=== PATIENT | female | born 1950 | race Caucasian/White ===

== ENCOUNTER 2017-12-23 10:03 | Inpatient (IN) | payer MEDICARE ==
[2017-12-23] MEDS ORDERED: Iodixanol 320 MG/ML 100 ML BOTTLE IV ONE (10:14)
[2017-12-23 10:25] LABS: BASO % 0.5 % (0.0-2.0); EOS % 0.2 % (0.0-4.0); HEMOGLOBIN 13.3 g/dL (11.0-16.0); LYMPH # 1.2 K/uL (1.0-4.3); LYMPH % 17.4 % (20.0-40.0); MEAN CELL VOLUME 88.3 fL (81.0-99.0); MEAN CORPUSCULAR HEMOGLOBIN 29.5 pg (27.0-31.0); MEAN CORPUSCULAR HGB CONC 33.4 g/dL (33.0-37.0); MEAN PLATELET VOLUME 9.3 fL (7.2-11.7); MONO # 0.2 K/uL (0.0-0.8); MONO % 2.2 % (0.0-10.0); NEUT # 5.7 K/uL (1.8-7.0); NEUT % 79.7 % (50.0-75.0); RBC 4.52 Mil/uL (3.80-5.20); WHITE BLOOD COUNT 7.1 K/uL (4.8-10.8)
[2017-12-23 10:37] LABS: INR 0.9; PROTHROMBIN TIME 10.1 SECONDS (9.7-12.2)
--- NOTE | 2017-12-23 10:37 | CT ---
PROCEDURE: CT HEAD WITHOUT CONTRAST. HISTORY: Code Stroke COMPARISON: None available. TECHNIQUE: Axial computed tomography images were obtained through the head/brain without intravenous contrast. Radiation dose: Total exam DLP = eight hundred seventy-six mGy-cm. This CT exam was performed using one or more of the following dose reduction techniques: Automated exposure control, adjustment of the mA and/or kV according to patient size, and/or use of iterative reconstruction technique. FINDINGS: HEMORRHAGE: No intracranial hemorrhage. BRAIN: No mass effect or edema. Scattered focal lucencies in the subcortical and periventricular white matter suggestive for chronic microvascular ischemic change. More confluent low attenuation seen within the posterior left parieto-occipital regions suggestive for infarct. Prominent bilateral basal ganglia calcifications. Punctate left basal ganglia lacunar infarct. . VENTRICLES: Unremarkable. No hydrocephalus. CALVARIUM: Unremarkable. PARANASAL SINUSES: Unremarkable as visualized. No significant inflammatory changes. MASTOID AIR CELLS: Unremarkable as visualized. No inflammatory changes. OTHER FINDINGS: Intracranial arterial calcifications. IMPRESSION: Confluent low attenuation in the left parieto-occipital lobes suggestive for infarction. Correlation with MRI may be helpful if clinically indicated. Chronic microvascular ischemic changes. Left basal ganglia lacunar infarct. If focal neurologic deficit persists, consider further evaluation with MRI. These findings were discussed with Dr. Membreno at 10:32 a.m. on 12/23/2017.
[2017-12-23 11:01] LABS: ALBUMIN 3.8 g/dL (3.5-5.0); CALCIUM 9.2 mg/dl (8.6-10.4); GFR AFRICAN-AMERICAN > 60; GFR NON-AFRICAN AMERICAN > 60; HDL CHOLESTEROL 38 mg/dL (30-70)
[2017-12-23 11:02] LABS: ALT/SGPT 26 U/L (9-52); AST/SGOT 30 U/L (14-36); BLOOD UREA NITROGEN 41 mg/dL (7-17)
--- NOTE | 2017-12-23 11:14 | CT ---
PROCEDURE: CT Angiography of the Brain. HISTORY: code stroke COMPARISON: None available. TECHNIQUE: CT angiography of the intracranial arteries was performed. Coronal and sagittal maximum intensity projection reformated images were generated. This CT exam was performed using one or more of the following dose reduction techniques: Automated exposure control, adjustment of the mA and/or kV according to patient size, and/or use of iterative reconstruction technique. FINDINGS: INTERNAL CEREBRAL ARTERIES: The skull base, petrous, and supraclinoid segments are bilaterally widely patent. [id number] bilateral cavernous ICA atherosclerotic changes are identified without significant stenosis developing grossly. ANTERIOR CEREBRAL ARTERIES: Unremarkable. A1 and A2 segments are widely patent. Smaller distal branches unremarkable, as visualized. MIDDLE CEREBRAL ARTERIES: Unremarkable. M1 and M2 segments are widely patent. Perisylvian branches grossly symmetric. POSTERIOR CIRCULATION: Basilar Artery: Unremarkable. Distal Vertebral Arteries: Unremarkable. Posterior Cerebral Arteries: Unremarkable. Posterior Inferior Cerebellar Arteries: Unremarkable. NECK CTA: Common Carotid arteries: The bilateral common carotid arteries are patent with atherosclerotic change identified greater the right than left carotid bulb regions. No significant stenosis identified nevertheless. No evidence to suggest common carotid artery dissection. Internal Carotid arteries: A moderate to severe left ICA origin stenosis appreciated due to atherosclerotic plaque extending into the proximal left ICA resulting in a stenosis of on the order of approximately 65-75 percent. No significant stenosis is appreciated throughout the left cervical internal carotid artery segments and there is no evidence of dissection either. External Carotid arteries: Appear unremarkable bilaterally. Vertebral arteries: The bilateral vertebral arteries appear normal in caliber from their origins to their junction with the basilar artery. No significant stenosis or definite pattern of dissection. ANEURYSM/ VASCULAR MALFORMATIONS: None. OTHER FINDINGS: None. IMPRESSION: Bilateral cavernous internal carotid artery atherosclerosis without significant stenosis. CT of the brain otherwise unremarkable grossly. Moderate to severe right internal carotid artery origin stenosis. No significant stenosis left ICA. Bilateral carotid bulbar atherosclerotic plaque.
[2017-12-23 11:43] LABS: LDL CHOLESTEROL 102 mg/dL (0-129)
[2017-12-23] MEDS ORDERED: NIFEdipine 90 mg ER Tab PO STA (11:52)
--- NOTE | 2017-12-23 12:43 | RAD ---
Chest x-ray single frontal view History: Code stroke. Comparison: 12/23/2017 Findings: Moderate venous congestion. Small nodular density at the medial right lower lung zone. Linear atelectasis in the right midlung zone. Mild cardiomegaly. Degenerative changes the spine and shoulders. Impression: Moderate venous congestion. Small nodular density at the medial right lower lung zone. Linear atelectasis in the right midlung zone. Mild cardiomegaly.
--- NOTE | 2017-12-23 13:01 | C.PDOC ---
History Of Present Illness 67 year old female, whose past medical history includes hyperthyroidism and TIA , who presents to the ED via ALS for right facial droop since 1 hour prior to arrival. Patient states she is unsure if the symptoms began when she woke up. Daughter reports patient is not slurring speech but face presentation is different. Patient denies shortness of breath, headache, fever, chills cough, nausea, vomiting, diarrhea, or other complaints. Chief Complaint (Nursing): Weakness/Neurological Deficit History Per: Patient History/Exam Limitations: no limitations Onset/Duration Of Symptoms: Hrs Current Symptoms Are (Timing): Still Present Fall Associated With With Symptoms: No Recent travel outside of the [place]: No Additional History Per: Family Past Medical History Reviewed: Historical Data, Nursing Documentation, Vital Signs Vital Signs: Last Vital Signs Temp 97.5 F L 12/23/17 17:36 Pulse 80 12/23/17 17:36 Resp 16 12/23/17 17:36 BP 178/78 H 12/23/17 17:36 Pulse Ox 98 12/23/17 17:47 - Medical History PMH: Hypothyroidism, TIA Family History: States: No Known Family Hx - Social History Hx Alcohol Use: No Hx Substance Use: No Review Of Systems Except As Marked, All Systems Reviewed And Found Negative. Cardiovascular: Negative for: Chest Pain Respiratory: Negative for: Shortness of Breath Neurological: Positive for: Other (right facial droop). Negative for: Change in Speech Physical Exam - Physical Exam Appears: Well, Non-toxic, No Acute Distress Skin: Normal Color, Warm, Dry Head: Atraumatic, Normacephalic Eye(s): bilateral: Normal Inspection, PERRL, EOMI Oral Mucosa: Moist Tongue: Normal Appearing Cardiovascular: Rhythm Regular, No Murmur Respiratory: Normal Breath Sounds, No Rales, No Rhonchi, No Wheezing Gastrointestinal/Abdominal: Normal Exam, Bowel Sounds (Normal ), Soft, No Tenderness, No Distention, No Guarding, No Rebound Extremity: Normal ROM Neurological/Psych: Oriented x3, Normal Speech, Normal Cognition, Normal Cranial Nerves, Normal Motor, Normal Sensation, Other (right facial droop. no slurred speech ) ED Course And Treatment - Laboratory Results Result Diagrams: 12/23/17 10:15 12/23/17 10:15 ECG: Interpreted By Me, Viewed By Me ECG Rhythm: Sinus Rhythm (normal) Rate From EC O2 Sat by Pulse Oximetry: 98 (room air) Pulse Ox Interpretation: Normal NIHSS Stroke Scale 2 - Date/Time Evaluation Performed Date Performed: 12/23/17 Time Performed: 10:05 - How Severe is the Stroke Level of Consciousness: 0=Alert LOC to Questions: 0=Both comments correct LOC to commands: 0=Obeys both correctly Best Gaze: 0=Normal Visual: 0=No visual loss Facial: 1=Minor asymmetry Motor Arm - Left: 0=No drift Motor Arm - Right: 0=No drift Motor Leg - Left: 0=No drift Motor Leg - Right: 0=No drift Limb Ataxia: 0=Absent Sensory: 0=Normal Best Language: 0=No aphasia Dysarthia: 0=Normal articulation Extinction & Inattention (Neglect): 0=Normal, no object Score: 1 Severity Of Stroke: 1-4 = Minor Stroke rTPA Inclusion/Exclusion - Refusal of Treatment Patient Refused Treatment: No - Inclusion Criteria for Altepase Patient is 18 years or Older: Yes The Clinical Diagnosis of Ischemic Stroke That is Causing a Potentially Disabling Neurological Deficit: No Time of Onset is Well Established to be Less Than 270 Minute Before Treatment Would Begin: Yes Risk/Benefit Discussed With Patient/Family Member Present: No Medical Decision Making Medical Decision Making: Impression: 67 y/o female with right facial droop Plan: -- EKG -- CT Head -- CT neck -- CXR -- Labs -- Urinalysis -- Reassess and disposition Progress Notes: Case disscused with Dr. Schmidt, neurologist business administration program chair who saw patient. Dr. Schmidt advises due to elevated HTN, he recommends admission for work up. patient also admits to not taking any medication for HTN and will be administered medication in ED. Disposition - Disposition Disposition Time: 11:30 Condition: GUARDED - Clinical Impression Clinical Impression: TIA (transient ischemic attack), Facial droop - Scribe Statement The provider has reviewed the documentation as recorded by the Scribe Scribe Attestation: Evie Hadley MD Scribe Attestation: All medical record entries made by the Scribe were at my direction and personally dictated by me. I have reviewed the chart and agree that the record accurately reflects my personal performance of the history, physical exam, medical decision making, and the department course for this patient. I have also personally directed, reviewed, and agree with the discharge instructions and disposition.
--- NOTE | 2017-12-23 14:42 | CP.PCM.CON ---
History of Present Illness - History of Present Illness History of Present Illness: Called for a code stroke on this patient earlier today, who presented with a discrete spell of dysarthria with a 10 minute duration, not accompanied by aphasia, or focal weakness at about am this morning. Miss Morris has severe DM, HTN, obesity, and was speaking to her daughter earlier today on the phone, when daughter noted that she was slurring her words. Last night, the patient complained of malaise, fever, and chills, and this morning, she continued to feel ill so called her daughter. Ambulance was called and she was brought [facility] ER, with dysarthria already resolved. On my exam, approximately 45 minutes after patient arrived in ER, she had an NIH stroke scale of 0 and was not a TPA candidate. There was no aphasia, weakness or facial droop. The daughter, who was at bedside, confirmed this. Apparentlly, there is a history of a ministroke in the past, but the deficits are not clear. She does complain of dizziness worse on positional manuevers. ROS: denies headache, nausea, vomiting, weakness, blurriness of vision. pmh/psh: as above. fh/sh: family history of Dm, htn. all: nkda. On exam: aaox3. pupils 3mm-2mm with light. EOMI, CN 2-12 normal. motor: 5/5 ul and ll bl. SEnsory: intact ft, pin but decreased in asymmetric fashion in legs bl. gait; normal, no rhomberg noted. no dysmetria, no drift. +1 dtr ul and ll bl. toes downgoing. no clonus. Past Patient History - Past Social History Smoking Status: Never Smoked - CARDIAC Hx Cardiac Disorders: Yes - NEUROLOGICAL Hx Transient Ischemic Attacks (TIA): Yes - ENDOCRINE/METABOLIC Hx Hypothyroidism: Yes - PSYCHIATRIC Hx Substance Use: No Meds Allergies/Adverse Reactions: Allergies Allergy/AdvReac Type Severity Reaction Status Date / Time No Known Allergies Allergy Unverified 06/20/13 10:52 Results - Vital Signs Recent Vital Signs: Last Vital Signs Temp 97.7 F 12/23/17 13:12 Pulse 64 12/23/17 14:09 Resp 14 12/23/17 14:09 BP 163/57 H 12/23/17 14:09 Pulse Ox 100 12/23/17 14:09 - Labs Result Diagrams: 12/23/17 10:15 12/23/17 10:15 Labs: Laboratory Results - last 24 hr 12/23/17 12/23/17 12/23/17 10:12 10:15 10:15 WBC 7.1 RBC 4.52 Hgb 13.3 Hct 39.9 MCV 88.3 MCH 29.5 MCHC 33.4 RDW 14.0 Plt Count 177 MPV 9.3 Neut % (Auto) 79.7 H Lymph % (Auto) 17.4 L [place] % (Auto) 2.2 Eos % (Auto) 0.2 Baso % (Auto) 0.5 Neut # (Auto) 5.7 Lymph # (Auto) 1.2 [place] # (Auto) 0.2 Eos # (Auto) 0.0 Baso # (Auto) 0.0 PT 10.1 INR 0.9 APTT 33 Sodium Potassium Chloride Carbon Dioxide Anion Gap BUN Creatinine Est GFR ( Amer) Est GFR (Non-Af Amer) POC Glucose (mg/dL) 118 H Random Glucose Hemoglobin A1c Calcium Total Bilirubin AST ALT Alkaline Phosphatase Troponin I Total Protein Albumin Globulin Albumin/Globulin Ratio Triglycerides Cholesterol LDL Cholesterol Direct HDL Cholesterol Blood Type Antibody Screen 12/23/17 12/23/17 12/23/17 10:15 10:15 10:15 WBC RBC Hgb Hct MCV MCH MCHC RDW Plt Count MPV Neut % (Auto) Lymph % (Auto) [place] % (Auto) Eos % (Auto) Baso % (Auto) Neut # (Auto) Lymph # (Auto) [place] # (Auto) Eos # (Auto) Baso # (Auto) PT INR APTT Sodium 141 Potassium 4.5 Chloride 105 Carbon Dioxide 25 Anion Gap 16 BUN 41 H Creatinine 0.8 Est GFR ( Amer) > 60 Est GFR (Non-Af Amer) > 60 POC Glucose (mg/dL) Random Glucose 143 H Hemoglobin A1c 6.8 H Calcium 9.2 Total Bilirubin 0.6 AST 30 ALT 26 Alkaline Phosphatase 86 Troponin I < 0.0120 Total Protein 7.6 Albumin 3.8 Globulin 3.8 Albumin/Globulin Ratio 1.0 Triglycerides 86 Cholesterol 158 LDL Cholesterol Direct 102 HDL Cholesterol 38 Blood Type A POSITIVE Antibody Screen Negative - Imaging and Cardiology CT scan - head Additional comment: CT: normal.. CTA: significant LT ica stenosis of 65-75% Assessment & Plan - Assessment and Plan (Free Text) Assessment: 67 yr old woman with most likely TIA, and significant lt. ica stenosis. We will start stroke workup. Plan: 1. lipid profile. 2. MRI Brain without tin 3. aspirin 325 mg po daily. 4. Keep bp up at 180/90 range. 5. ECHO. 6. Will ask neurointerventional about her ICA stenosis ?intervention. 7. Admit to telemetry.
--- NOTE | 2017-12-23 15:21 | CP.PCM.HP ---
History of Present Illness - History of Present Illness History of Present Illness: PGY1 H+P for Dr. Kassie Hernandez Stroke Patient is a 67 year old female with a past medical history of DM2, HTN, obesity and previous TIA. Patient is accompanied by her daughter who translates for the patient. Last night the patient as experiences fatigue and chills. This morning she had an episode when she became extremely diaphoretic, dizzy and blurry vision. The patient decided to call the her daughter. The daughter noticed that the patient was slurring her words and decided to call for an ambulance. A code stroke was called. Patient was evaluated by neurology in the ED and was found to have an NIH stroke scale of 0 (per neuro note). This is not the first time the patient has experienced this symptoms. The only reason she decided to call her daughter today was because this episode of diaphoresis, dizziness and blurry vision The patient denies any headaches, nausea, vomiting, chest pain, abdominal pain, palpitations, loss of consciousness, muscle weakness , facial droop, aphasia, numbness or tingling. 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 Family Hx: multiple family members with diabetes/htn Social: Never Smoked, denies alcohol/illicit drug use - patient lives alone in apartment in [place] Allergies: NKDA Present on Admission - Present on Admission Any Indicators Present on Admission: No Review of Systems - Review of Systems All systems: reviewed and no additional remarkable complaints except (as per HPI ) Past Patient History - Past Social History Smoking Status: Never Smoked - CARDIAC Hx Cardiac Disorders: Yes - NEUROLOGICAL Hx Transient Ischemic Attacks (TIA): Yes - ENDOCRINE/METABOLIC Hx Hypothyroidism: Yes - PSYCHIATRIC Hx Substance Use: No Meds Allergies/Adverse Reactions: Allergies Allergy/AdvReac Type Severity Reaction Status Date / Time No Known Allergies Allergy Unverified 06/20/13 10:52 Physical Exam - Constitutional Appears: No Acute Distress, Other (obese) - Head Exam Head Exam: ATRAUMATIC, NORMOCEPHALIC - Eye Exam Eye Exam: EOMI, Normal appearance Pupil Exam: NORMAL ACCOMODATION - ENT Exam ENT Exam: Mucous Membranes Moist - Respiratory Exam Respiratory Exam: Clear to Auscultation Bilateral, NORMAL BREATHING PATTERN. absent: Accessory Muscle Use, Rales, Rhonchi, Wheezes, Respiratory Distress - Cardiovascular Exam Cardiovascular Exam: REGULAR RHYTHM, +S1, +S2 - GI/Abdominal Exam GI & Abdominal Exam: Normal Bowel Sounds, Soft. absent: Distended, Firm, Guarding, Rigid, Tenderness - Extremities Exam Extremities exam: Positive for: calf tenderness (R side), normal capillary refill, pedal edema (2+ pitting edema on right, 1+ pitting edema on left), pedal pulses present Additional comments: amputation of 5th digit on left foot. - Neurological Exam Neurological exam: Alert, CN II-XII Intact, Oriented x3 - Expanded Neurological Exam Expanded Patient oriented to: person, place, time Cranial nerves: EOM's Intact: Normal, Facial Sensation: Normal, Nystagmus: Normal, Tongue Deviation: Normal Ataxia: No Upper motor neuron: Babinski Sign: Normal, Sourav Neglect: Normal, Pronator Drift : Normal, Sensory Extinction: Normal Neuro motor strength exam: Left Upper Extremity: 5, Right Upper Extremity: 5, Left Lower Extremity: 5, Right Lower Extremity: 5 Coma Scale Eye Opening: SPONTANEOUS Coma Scale Motor Response: OBEYS COMMANDS Coma Scale Verbal: Oriented Coma Scale Total: 15 - Psychiatric Exam Psychiatric exam: Normal Affect, Normal Mood - Skin Skin Exam: Dry, Warm Results - Vital Signs Recent Vital Signs: Last Vital Signs Temp 97.7 F 12/23/17 13:12 Pulse 64 12/23/17 14:09 Resp 14 12/23/17 14:09 BP 163/57 H 12/23/17 14:09 Pulse Ox 100 12/23/17 14:09 - Labs Result Diagrams: 12/23/17 10:15 12/23/17 10:15 Labs: Laboratory Results - last 24 hr 12/23/17 12/23/17 12/23/17 10:12 10:15 10:15 WBC 7.1 RBC 4.52 Hgb 13.3 Hct 39.9 MCV 88.3 MCH 29.5 MCHC 33.4 RDW 14.0 Plt Count 177 MPV 9.3 Neut % (Auto) 79.7 H Lymph % (Auto) 17.4 L [place] % (Auto) 2.2 Eos % (Auto) 0.2 Baso % (Auto) 0.5 Neut # (Auto) 5.7 Lymph # (Auto) 1.2 [place] # (Auto) 0.2 Eos # (Auto) 0.0 Baso # (Auto) 0.0 PT 10.1 INR 0.9 APTT 33 Sodium Potassium Chloride Carbon Dioxide Anion Gap BUN Creatinine Est GFR ( Amer) Est GFR (Non-Af Amer) POC Glucose (mg/dL) 118 H Random Glucose Hemoglobin A1c Calcium Total Bilirubin AST ALT Alkaline Phosphatase Troponin I Total Protein Albumin Globulin Albumin/Globulin Ratio Triglycerides Cholesterol LDL Cholesterol Direct HDL Cholesterol Blood Type Antibody Screen 12/23/17 12/23/17 12/23/17 10:15 10:15 10:15 WBC RBC Hgb Hct MCV MCH MCHC RDW Plt Count MPV Neut % (Auto) Lymph % (Auto) [place] % (Auto) Eos % (Auto) Baso % (Auto) Neut # (Auto) Lymph # (Auto) [place] # (Auto) Eos # (Auto) Baso # (Auto) PT INR APTT Sodium 141 Potassium 4.5 Chloride 105 Carbon Dioxide 25 Anion Gap 16 BUN 41 H Creatinine 0.8 Est GFR ( Amer) > 60 Est GFR (Non-Af Amer) > 60 POC Glucose (mg/dL) Random Glucose 143 H Hemoglobin A1c 6.8 H Calcium 9.2 Total Bilirubin 0.6 AST 30 ALT 26 Alkaline Phosphatase 86 Troponin I < 0.0120 Total Protein 7.6 Albumin 3.8 Globulin 3.8 Albumin/Globulin Ratio 1.0 Triglycerides 86 Cholesterol 158 LDL Cholesterol Direct 102 HDL Cholesterol 38 Blood Type A POSITIVE Antibody Screen Negative Assessment & Plan - Assessment and Plan (Free Text) Plan: CODE Stroke Neurology consulted, Dr. Vivas - Dr. Schmidt covering Neurovascular consulted, Dr. Leyva Head CT w/o contrast - Confluent low attenuation in the left parieto-occipital lobes suggestive for infarction. Correlation with MRI may be helpful if clinically indicated. Chronic microvascular ischemic changes. Left basal ganglia lacunar infarct. If focal neurologic deficit persists, consider further evaluation with MRI. Head/Neck CTA - Bilateral cavernous internal carotid artery atherosclerosis without significant stenosis. CT of the brain otherwise unremarkable grossly. Moderate to severe right internal carotid artery origin stenosis. No significant stenosis left ICA. Bilateral carotid bulbar atherosclerotic plaque. CXR - Moderate venous congestion. Small nodular density at the medial right lower lung zone. Linear atelectasis in the right midlung zone. Mild cardiomegaly. Brain MRI w/o: f/u ECHO:f/u Carotid Doppler: f/u LE venous duplex: f/u EKG: NSR, left axis deviations, ST elevations Lipid Panel: HDL 38, LDL 102, Trigly 86 Trop: neg x1, f/u repeat TSH/free T4: f/u Neuro checks q4h Per Neuro Note, * Aspirin 325mg PO daily * Keep BP up at 180/90 range Patient's symptoms have resolved. Patient is currently showing no signs of residual neuro deficits. Continue to monitor. Diabetes ISS - high dose Accuchecks Hold home medications at this time * Metformin - unknown dose * Novolog 10u BID Hypertension Keep BP up at 180/90 range Hold home BP medications at this time * Furosemide 40mg PO daily * Valsartan - unknown dose Anemia Continue to monitor Prophylactic Care Pepcid 20mg PO daily Heparin 5000u q8h No SCDS - 2/2 leg edema Crestor 10mg PO HS Heart healthy, 2g Na, Carbo consistent - low Patient's home medications dosages are not known. Will call pharmacy to verify medications. * Furosemide 40mg PO daily * Valsartan - unknown dose * ASA 81mg PO daily * Metformin - unknown dose * Lipator - unknown dose * Insulin - Novolog 10u BID * Procardia XL - unknown dose * Triceva??? Case discussed with Dr. Kassie Arzate Alex PGY1
[2017-12-23] MEDS ORDERED: (Novolin R) Insulin Human Regular 100 units/ml vial ONE (21:58)
[2017-12-23] MEDS: (Novolin R) Insulin Human Regular 100 units/ml vial SC SCH (22:00)
[2017-12-24 05:08] LABS: SQUAMOUS EPITHIAL 4 /hpf (0-5); URINE BACTERIA OCC (<OCC); URINE BILIRUBIN NEGATIVE (NEGATIVE); URINE BLOOD NEGATIVE (NEGATIVE); URINE CLARITY Hazy (Clear); URINE COLOR Yellow (YELLOW); URINE GLUCOSE (UA) NORMAL (Normal); URINE LEUKOCYTE ESTERASE NEG Leu/uL (Negative); URINE NITRATE NEGATIVE (NEGATIVE); URINE PROTEIN 2+ mg/dL (NEGATIVE); URINE UROBILINOGEN NORMAL mg/dL (0.2-1.0)
[2017-12-24 05:44] VITALS: RESP 20
--- NOTE | 2017-12-24 06:45 | CP.PCM.PN ---
Subjective - Date & Time of Evaluation Date of Evaluation: 12/24/17 Time of Evaluation: 06:43 - Subjective Subjective: Ms. Morris was seen and examined at the bedside. 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 She denies any headache, dizziness, blurred vision, diplopia, nausea, or vomiting. She is able to follow simple commands. CTA showed bilateral ICA atherosclerosis without significant stenosis. There was no untoward events overnight. Objective - Vital Signs/Intake and Output Vital Signs (last 24 hours): Temp Pulse Resp BP Pulse Ox 98.8 F 74 20 175/73 H 96 12/24/17 04:28 12/24/17 05:43 12/24/17 05:43 12/24/17 05:43 12/24/17 05:43 Intake and Output: 12/23/17 12/24/17 18:59 06:59 Intake Total 300 Output Total 550 Balance -250 - Medications Medications: Current Medications Aspirin (Ecotrin) 81 mg PO DAILY [facility] Clopidogrel Bisulfate (Plavix) 75 mg PO DAILY [facility] Famotidine (Pepcid) 20 mg PO DAILY [facility] Heparin Sodium (Porcine) (Heparin) 5,000 units SC Q8 [facility] Last Admin: 12/24/17 05:07 Dose: 5,000 units Insulin Human Regular (Novolin R) 0 unit SC ACHS [facility] PRN Reason: Protocol Last Admin: 12/23/17 22:00 Dose: 2 unit Rosuvastatin Calcium (Crestor) 10 mg PO HS [facility] Last Admin: 12/23/17 21:59 Dose: 10 mg - Labs Labs: 12/23/17 10:15 12/23/17 10:15 PT 10.1 SECONDS (9.7-12.2) 12/23/17 10:15 INR 0.9 12/23/17 10:15 APTT 33 SECONDS (21-34) 12/23/17 10:15 - Constitutional Appears: No Acute Distress - Head Exam Head Exam: NORMAL INSPECTION - Neurological Exam Neurological Exam: Alert, Awake, Oriented x3 Neuro motor strength exam: Left Upper Extremity: 5, Right Upper Extremity: 5, Left Lower Extremity: 5, Right Lower Extremity: 5 Additional comments: She is able to answer questions and follow simple commands. Sensation remains intact. Assessment and Plan (1) TIA (transient ischemic attack) Assessment & Plan: Case discussed with Dr. Vivas, continue all current medical regimen. Recommend PT, OT, and speech therapies. Pending echocardiogram, MRI of the brain without contrast, MRA of the head and neck without contrast. Recommend aspirin 81 mg PO daily and Plavix 75 mg PO daily. Status: Acute
[2017-12-24 08:13] LABS: BASO % 0.6 % (0.0-2.0); EOS # 0.1 K/uL (0.0-0.7); EOS % 2.3 % (0.0-4.0); HEMOGLOBIN 11.4 g/dL (11.0-16.0); LYMPH # 1.8 K/uL (1.0-4.3); LYMPH % 30.2 % (20.0-40.0); MEAN CELL VOLUME 87.8 fL (81.0-99.0); MEAN CORPUSCULAR HEMOGLOBIN 29.3 pg (27.0-31.0); MEAN CORPUSCULAR HGB CONC 33.4 g/dL (33.0-37.0); MEAN PLATELET VOLUME 9.5 fL (7.2-11.7); MONO # 0.4 K/uL (0.0-0.8); MONO % 6.2 % (0.0-10.0); NEUT # 3.5 K/uL (1.8-7.0); NEUT % 60.7 % (50.0-75.0); NRBC % 0.1 % (0.0-2.0); RBC 3.9 Mil/uL (3.80-5.20); RED CELL DISTRIBUTION WIDTH 14.3 % (11.5-14.5); WHITE BLOOD COUNT 5.8 K/uL (4.8-10.8)
[2017-12-24 08:31] LABS: ALBUMIN 3.3 g/dL (3.5-5.0); ALT/SGPT 22 U/L (9-52); AST/SGOT 28 U/L (14-36); BLOOD UREA NITROGEN 30 mg/dL (7-17); CALCIUM 8.7 mg/dl (8.6-10.4); GFR AFRICAN-AMERICAN > 60; GFR NON-AFRICAN AMERICAN > 60
[2017-12-24] MEDS: (Novolin R) Insulin Human Regular 100 units/ml vial SC SCH ×4 (09:14→22:08)
--- NOTE | 2017-12-24 10:10 | MRI ---
PROCEDURE: Magnetic Resonance Angiography Brain HISTORY: TIA COMPARISON: CTA head from 12/23/2017 TECHNIQUE: 3D time of flight MR angiography of the intracranial arteries was performed. Rotating maximum intensity projection images were generated. FINDINGS: INTERNAL CAROTID ARTERIES: Normal flow related signal. The skull base, petrous, cavernous and supraclinoid segments are bilaterally widely patient. ANTERIOR CEREBRAL ARTERIES: Normal flow related signal. The right A1 segment is hypoplastic, an anatomic variant the A1 and A2 segments are widely patent. Smaller distal branches unremarkable, as visualized. MIDDLE CEREBRAL ARTERIES: Normal flow related signal. M1 and M2 segments are widely patent. Perisylvian branches grossly symmetric. POSTERIOR CIRCULATION: Basilar Artery: Normal flow related signal. Distal Vertebral Arteries: Normal flow related signal. The right intracranial vertebral artery is dominant, an anatomic variant. Posterior Cerebral Arteries: Unremarkable. Posterior Inferior Cerebellar Arteries: Normal flow related signal. ANEURYSM/ VASCULAR MALFORMATIONS: None. OTHER FINDINGS: None. IMPRESSION: No evidence of occlusion, definite significant stenosis or saccular and
--- NOTE | 2017-12-24 10:16 | CP.PCM.PN ---
<Cassi Kelly E - Last Filed: 12/24/17 15:01> Subjective - Date & Time of Evaluation Date of Evaluation: 12/24/17 Time of Evaluation: 01:05 - Subjective Subjective: Medicine progress note ( Dr. Carvalho's service) Patient was seen and examined at bedside. Patient reports that she is doing well. Patient denies chest pain, SOB, palpitations, nausea, vomiting, headache, blurry vision, fever or chills. During the second encounter with attending present patient's imaging result was discussed in citizen of [place] and patient understood. Objective - Vital Signs/Intake and Output Vital Signs (last 24 hours): Temp Pulse Resp BP Pulse Ox 98.6 F 81 20 179/61 H 96 12/24/17 07:54 12/24/17 07:54 12/24/17 07:54 12/24/17 07:54 12/24/17 07:54 Intake and Output: 12/24/17 12/24/17 06:59 18:59 Intake Total 300 Output Total 550 Balance -250 - Medications Medications: Current Medications Aspirin (Ecotrin) 81 mg PO DAILY [facility] Clopidogrel Bisulfate (Plavix) 75 mg PO DAILY [facility] Famotidine (Pepcid) 20 mg PO DAILY [facility] Heparin Sodium (Porcine) (Heparin) 5,000 units SC Q8 [facility] Last Admin: 12/24/17 05:07 Dose: 5,000 units Insulin Human Regular (Novolin R) 0 unit SC ACHS [facility] PRN Reason: Protocol Last Admin: 12/24/17 09:14 Dose: Not Given Rosuvastatin Calcium (Crestor) 10 mg PO HS [facility] Last Admin: 12/23/17 21:59 Dose: 10 mg - Labs Labs: 12/24/17 08:02 12/24/17 08:02 PT 10.1 SECONDS (9.7-12.2) 12/23/17 10:15 INR 0.9 12/23/17 10:15 APTT 33 SECONDS (21-34) 12/23/17 10:15 - Constitutional Appears: Well, No Acute Distress - Head Exam Head Exam: ATRAUMATIC, NORMAL INSPECTION - Eye Exam Eye Exam: EOMI, Normal appearance - ENT Exam ENT Exam: Mucous Membranes Moist - Respiratory Exam Respiratory Exam: Clear to Ausculation Bilateral, NORMAL BREATHING PATTERN. absent: Rales, Rhonchi, Wheezes, Respiratory Distress - Cardiovascular Exam Cardiovascular Exam: REGULAR RHYTHM, +S1, +S2 - GI/Abdominal Exam GI & Abdominal Exam: Soft, Normal Bowel Sounds. absent: Distended, Firm, Guarding, Rigid, Tenderness - Extremities Exam Extremities Exam: Normal Inspection Additional comments: Chronic venous stasis bilaterally - Neurological Exam Neurological Exam: Alert, Awake, CN II-XII Intact, Oriented x3 - Psychiatric Exam Psychiatric exam: Normal Affect, Normal Mood - Skin Skin Exam: Normal Color Assessment and Plan (1) TIA (transient ischemic attack) Assessment & Plan: CODE Stroke Neurology consulted, Dr. Vivas ---> Help appreciated Neurovascular consulted, Dr. Leyva---> Help appreciated * Management as per recommendation Imaging: Head CT ( 12/23/17): Confluent low attenuation in the left parieto-occipital lobes suggestive for infarction. Correlation with MRI may be helpful if clinically indicated. Chronic microvascular ischemic changes. Left basal ganglia lacunar infarct. Head/Neck CTA (12/23/17): Bilateral cavernous internal carotid artery atherosclerosis without significant stenosis. CT of the brain otherwise unremarkable grossly. Moderate to severe right internal carotid artery origin stenosis. No significant stenosis left ICA. Bilateral carotid bulbar atherosclerotic plaque. Carotid doppler study (12/24/17): Duplex scan do not suggest hemodynamically significant stenosis of the right or left extracranial carotid arteries Head MRA (12/24/17): No evidence of occlusion, definite significant stenosis or saccular Neck MRA (12/24/17):There is a stenosis of the origin right internal carotid artery estimated between 50-60 percent. Correlate with concurrent carotid ultrasound. * Will f/u up if intervention is recommended Brain MRI (12/24/17): No acute intracranial abnormality. Specifically, no evidence of acute infarction. 2. 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 EKG: NSR, left axis deviations, ST elevations F/u echocardiogram: awaiting official report Labs: * Lipid Panel: HDL 38, LDL 102, Trigly 86 * TSH: 2.61 * Troponin: Negative X1 Medications: * Aspirin 81mg PO daily * Plavix 75mg PO daily * Crestor 10mg PO daily Status: Acute (2) History of diabetes mellitus Assessment & Plan: HgbA1C: 6.8 Accuchecks ISS- Low dose protocol Hypoglycemia protocol Status: Acute (3) History of hypertension Assessment & Plan: Goal on admission as per recommendation by Neurology: * Keep BP at 180/90; will follow up with neurology if anti-hypertensive medications can be started * Given Norvasc 5mg PO once for BP> 180/90 * Will continue to monitor Status: Acute (4) Prophylactic measure Assessment & Plan: GI: Pepcid 20mg PO daily DVT: Heparin 5,000 units SC Q8H Heart healthy diet Status: Acute <Mery Carvalho V - Last Filed: 12/24/17 18:27> Objective - Vital Signs/Intake and Output Vital Signs (last 24 hours): Temp Pulse Resp BP Pulse Ox 98.2 F 84 20 213/73 H 98 12/24/17 17:33 12/24/17 17:33 12/24/17 17:33 12/24/17 17:33 12/24/17 11:55 Intake and Output: 12/24/17 12/24/17 06:59 18:59 Intake Total 300 Output Total 550 Balance -250 - Medications Medications: Current Medications Amlodipine Besylate (Norvasc) 5 mg PO STAT STA Stop: 12/24/17 18:10 Amlodipine Besylate (Norvasc) 10 mg PO DAILY [facility] Aspirin (Ecotrin) 81 mg PO DAILY [facility] Last Admin: 12/24/17 12:29 Dose: 81 mg Clopidogrel Bisulfate (Plavix) 75 mg PO DAILY [facility] Last Admin: 12/24/17 12:29 Dose: 75 mg Dextrose (Dextrose 50% Inj) 0 ml IVP .STAT PRN; Protocol PRN Reason: Hypoglycemia Protocol Dextrose (Glutose 15) 0 gm PO .ONCE PRN; Protocol PRN Reason: Hypoglycemia Protocol Famotidine (Pepcid) 20 mg PO DAILY [facility] Last Admin: 12/24/17 12:29 Dose: 20 mg Glucagon (Glucagen Diagnostic Kit) 0 mg IM .STAT PRN; Protocol PRN Reason: Hypoglycemia Protocol Heparin Sodium (Porcine) (Heparin) 5,000 units SC Q8 [facility] Last Admin: 12/24/17 14:23 Dose: 5,000 units Dextrose (Dextrose 5% In Water 1000 Ml) 1,000 mls @ 0 mls/hr IV .Q0M PRN; Protocol; Per Protocol PRN Reason: Hypoglycemia Protocol Insulin Human Regular (Novolin R) 0 unit SC ACHS [facility] PRN Reason: Protocol Last Admin: 12/24/17 17:05 Dose: 2 unit Rosuvastatin Calcium (Crestor) 10 mg PO HS [facility] Last Admin: 12/23/17 21:59 Dose: 10 mg - Labs Labs: 12/24/17 08:02 12/24/17 08:02 PT 10.1 SECONDS (9.7-12.2) 12/23/17 10:15 INR 0.9 12/23/17 10:15 APTT 33 SECONDS (21-34) 12/23/17 10:15 Attending/Attestation - Attestation I have personally seen and examined this patient.: Yes I have fully participated in the care of the patient.: Yes I have reviewed all pertinent clinical information, including history, physical exam and plan: Yes Notes (Text): Patient seen, examined, case discussed with medical charge entry specialist. Patient seen this afternoon bed 10 about 1:20 PM awaiting a bed for the floor. Patient has completed during the day brain MRI as well as head and neck MRA. Patient seen at bedside eating lunch. Denies any acute complaints. Patient reports she's had mini strokes in the past discussed with the patient she's had evidence of prior strokes in the past based on her brain MRI and I have also discussed with the patient that she does have some plaque buildup associated with the right side over internal carotid. Discussed with neurology, no acute intervention for associated carotid arteriosclerosis at this time. Given symptoms are improving, to slowly start antihypertensives to bring down blood pressure preferably with calcium channel blockers and Patrice inhibitors to slowly downturned systolic around 170s today. Patient given a dose of Norvasc 5 mg stat given a second dose of Norvasc 5 mg by mouth. Need to recheck blood pressure to see if it being too systolic around 170s if not will advise resident for low dose patrice and arb. Patient has complete echocardiogram official report not available at this time. Assessment/Plan (1) TIA (transient ischemic attack) Cartoid Artery Stenosis Assessment & Plan: * Code Stroke 12/23 * Neurology consulted, Dr. Vivas ---> Help appreciated * No intervention at this time, his team discussed with Dr. Leyva. Continue to monitor and start anti-hypertensive therapy preferably calcium channel harris/ patrice inhibitors to slowly bring down blood pressure Imaging: * Head CT ( 12/23/17): Confluent low attenuation in the left parieto-occipital lobes suggestive for infarction. Correlation with MRI may be helpful if clinically indicated. Chronic microvascular ischemic changes. Left basal ganglia lacunar infarct. * Head/Neck CTA (12/23/17): Bilateral cavernous internal carotid artery atherosclerosis without significant stenosis. CT of the brain otherwise unremarkable grossly. Moderate to severe right internal carotid artery origin stenosis. No significant stenosis left ICA. Bilateral carotid bulbar atherosclerotic plaque. * Carotid doppler study (12/24/17): Duplex scan do not suggest hemodynamically significant stenosis of the right or left extracranial carotid arteries * Head MRA (12/24/17): No evidence of occlusion, definite significant stenosis or saccular * Neck MRA (12/24/17):There is a stenosis of the origin right internal carotid artery estimated between 50-60 percent. Correlate with concurrent carotid ultrasound. * Brain MRI (12/24/17): No acute intracranial abnormality. Specifically, no evidence of acute infarction. 2. 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 * EKG: NSR, left axis deviations, ST elevations * pending echocardiogram: awaiting official report Labs: * Lipid Panel: HDL 38, LDL 102, Trigly 86 * TSH: 2.61 * Troponin: Negative X1 Medications: * Aspirin 81mg PO daily * Plavix 75mg PO daily * Crestor 10mg PO daily Status: Acute (2) History of diabetes mellitus Assessment & Plan: * HgbA1C: 6.8 * Accuchecks * ISS- Low dose protocol * Hypoglycemia protocol Status: Acute (3) History of hypertension Assessment & Plan: * Goal on admission as per recommendation by Neurology: * To slowly bring down the blood pressure: goal: SBP 170s today * Given dose of Norvasc 5mg PO X1; and second dose ordered Norvac 5mg PO today * Will advise resident to start patrice/arb if blood pressure above 180-190s * Given Norvasc 5mg PO once for BP> 180/90 * Will continue to monitor Status: Acute (4) Prophylactic measure Assessment & Plan: * GI: Pepcid 20mg PO daily * DVT: Heparin 5,000 units SC Q8H * Heart healthy diet Status: Acute
--- NOTE | 2017-12-24 10:46 | MRI ---
PROCEDURE: MRI BRAIN WITHOUT CONTRAST HISTORY: Code Stroke COMPARISON: Noncontrast head CT from 12/23/2017 TECHNIQUE: Multiplanar, multisequence MR images of the brain were obtained without intravenous contrast enhancement. FINDINGS: HEMORRHAGE: None DWI: No evidence of an acute or early subacute infarction. BRAIN PARENCHYMA: Scan there is cystic encephalomalacia and gliosis in the left posterior parietal lobe and parieto-occipital watershed territory. There is no mass, mass effect or abnormal extra-axial fluid collection. There are moderate chronic microangiopathic changes. There tiny lacunar infarctions in the basal ganglia. The midline sagittal structures are normal. VENTRICLES: There is moderate age-related global parenchymal volume loss and proportionate enlargement of the ventricles and cortical sulci. CRANIUM: There is normal bone marrow signal pattern. ORBITS: Grossly unremarkable. PARANASAL SINUSES/MASTOIDS: There is moderate polypoid mucosal thickening in the left sphenoid chamber and mild mucosal thickening in the ethmoid air cells. The remaining included paranasal sinuses and mastoid air cells are predominantly clear. VASCULAR SYSTEM: There are normal signal voids in the larger intracranial arteries. OTHER FINDINGS: None. IMPRESSION: 1. No acute intracranial abnormality. Specifically, no evidence of acute infarction. 2. 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
--- NOTE | 2017-12-24 11:50 | MRI ---
PROCEDURE: MR Angiography of the neck without contrast HISTORY: TIA COMPARISON: Comparison made with CTA of the brain in neck 12/23/2017. TECHNIQUE: 3D [id number] angiography of the neck was performed. Rotating maximum intensity projection images of the cervical carotid and vertebral arteries were generated. The origins of the common carotid arteries were not visualized, which is a limitation inherent to the non-contrast time of flight technique. FINDINGS: RIGHT CAROTID ARTERIES: Common Carotid Artery: Normal. Carotid Bifurcation: Normal. Internal Carotid Artery there is a stenosis of the proximal aspect right internal carotid artery estimated at approximately 50-60 % based on measurements made on source and MIP imaging. LEFT CAROTID ARTERIES: Common Carotid Artery: Normal. Carotid Bifurcation: Normal. Internal Carotid Artery:Normal. External Carotid Artery (proximal branches): Normal. VERTEBRAL ARTERIES: Right Vertebral Artery: Normal. Left Vertebral Artery: Normal. OTHER FINDINGS: None. IMPRESSION: There is a stenosis of the origin right internal carotid artery estimated between 50-60 percent. Correlate with concurrent carotid ultrasound.
--- NOTE | 2017-12-24 11:57 | VASCLAB ---
PROCEDURE: HISTORY: Code stroke COMPARISON: None available. TECHNIQUE: Grayscale and duplex Doppler evaluation of the cervical carotid and vertebral arteries were performed. The common carotid, carotid bifurcations and cervical Internal Carotid Artery (ICA) and proximal External Carotid Artery (ECA) were evaluated. The vertebral arteries were evaluated for gross patency and flow direction. Report prepared by Ricky Buchanan, BS, RVT FINDINGS: RIGHT CAROTID ARTERIES: 1. Common Carotid Artery: No significant plaque formation of the right common carotid artery. Maximum Peak Systolic velocity: 84 cm/sec: End-diastolic velocity 9 cm/sec. 2. Carotid Bifurcation: plaque formation. Maximum Peak Systolic velocity: 64 cm/sec: End-diastolic velocity 7 cm/sec. 3. Internal Carotid Artery: Plaque description: Minimal calcific 3.1. Proximal Segment: Peak systolic velocity 98 cm/sec: End-diastolic velocity 24 cm/sec - % stenosis 0-15% 3.2. Middle Segment: Peak systolic velocity 112 cm/sec: End-diastolic velocity 24 cm/sec - % stenosis 0-15% 3.3. Distal Segment: Peak systolic velocity 62 cm/sec: End-diastolic velocity 15 cm/sec - % stenosis 0-15% 4. External Carotid Artery: No significant focal plaque formation. Peak systolic velocity 106 cm/sec 5. ICA/CCA Ratio: 1.6 LEFT CAROTID ARTERIES: 1. Common Carotid Artery: No significant focal plaque formation of the left common carotid artery. Maximum Peak Systolic velocity: 101 cm/sec: End-diastolic velocity 15 cm/sec. 2. Carotid Bifurcation: plaque formation. Maximum Peak Systolic velocity: 96 cm/sec: End-diastolic velocity 13 cm/sec. 3. Internal Carotid Artery: Plaque description: Minimal calcific 3.1. Proximal Segment: Peak systolic velocity 73 cm/sec: End-diastolic velocity 17 cm/sec - % stenosis 0-15% 3.2. Middle Segment: Peak systolic velocity 89 cm/sec: End-diastolic velocity 25 cm/sec - % stenosis 0-15% 3.3. Distal Segment: Peak systolic velocity 51 cm/sec: End-diastolic velocity 15 cm/sec - % stenosis 0-15% 4. External Carotid Artery: No significant focal plaque formation. Peak systolic velocity 107 cm/sec 5. ICA/CCA Ratio: 1.0 VERTEBRAL ARTERIES: 1. Right Vertebral Artery: The right vertebral artery flow direction is antegrade. 2. Left Vertebral Artery: The left vertebral artery flow direction is antegrade. OTHER FINDINGS: 1. Right Brachial Blood pressure: 210 mmHg. 2. Left Brachial Blood pressure: Unable to obtain IMPRESSION: RIGHT: Duplex scan does not suggest hemodynamically significant stenosis of the right extracranial carotid arteries. LEFT: Duplex scan does not suggest hemodynamically significant stenosis of the left extracranial carotid arteries.
[2017-12-24] MEDS ORDERED: Dextrose 50% SYRINGE Inj (50 ml) IVP PRN (15:01)
[2017-12-24] MEDS ORDERED: Glucagon Recombinant 1 mg Inj IM PRN (15:01)
[2017-12-24] MEDS ORDERED: (Novolin R) Insulin Human Regular 100 units/ml vial ONE (17:10)
[2017-12-25] MEDS: (Novolin R) Insulin Human Regular 100 units/ml vial SC SCH ×2 (08:13→12:30)
[2017-12-25 08:39] LABS: BASO % 0.6 % (0.0-2.0); EOS # 0.2 K/uL (0.0-0.7); EOS % 3.2 % (0.0-4.0); HEMOGLOBIN 11.9 g/dL (11.0-16.0); LYMPH # 1.5 K/uL (1.0-4.3); LYMPH % 31.8 % (20.0-40.0); MEAN CELL VOLUME 88.1 fL (81.0-99.0); MEAN CORPUSCULAR HEMOGLOBIN 30.1 pg (27.0-31.0); MEAN CORPUSCULAR HGB CONC 34.1 g/dL (33.0-37.0); MEAN PLATELET VOLUME 10.1 fL (7.2-11.7); MONO # 0.2 K/uL (0.0-0.8); NEUT # 2.8 K/uL (1.8-7.0); NEUT % 59.4 % (50.0-75.0); NRBC % 0.1 % (0.0-2.0); RBC 3.95 Mil/uL (3.80-5.20); RED CELL DISTRIBUTION WIDTH 14.3 % (11.5-14.5); WHITE BLOOD COUNT 4.8 K/uL (4.8-10.8)
[2017-12-25 08:45] VITALS: BP 173/81; PULSE 80; TEMP 97.9; O2SAT 99
[2017-12-25 08:51] LABS: ALB/GLOB RATIO 1.1 (1.0-2.1); ALBUMIN 3.6 g/dL (3.5-5.0); ALT/SGPT 28 U/L (9-52); AST/SGOT 27 U/L (14-36); BLOOD UREA NITROGEN 26 mg/dL (7-17); CALCIUM 9.3 mg/dl (8.6-10.4); GFR AFRICAN-AMERICAN > 60; GFR NON-AFRICAN AMERICAN > 60; MAGNESIUM 1.8 mg/dL (1.6-2.3)
--- NOTE | 2017-12-25 14:00 | CARD ---
APPROVED REPORT EKG Measurement Heart [id number] <Conclusion> Normal sinus rhythm Left axis deviation Prolonged QT Abnormal ECG
--- NOTE | 2017-12-25 14:55 | CP.PCM.DIS ---
Provider - Provider Date of Admission: 12/23/17 13:30 Attending physician: Mery Carvalho DO Time Spent in preparation of Discharge (in minutes): 45 Diagnosis - Discharge Diagnosis (1) TIA (transient ischemic attack) Status: Acute (2) History of diabetes mellitus Status: Chronic (3) History of hypertension Status: Chronic (4) Prophylactic measure Status: Acute Hospital Course - Lab Results Lab Results: Most Recent Lab Values WBC 4.8 K/uL (4.8-10.8) 12/25/17 08:21 RBC 3.95 Mil/uL (3.80-5.20) 12/25/17 08:21 Hgb 11.9 g/dL (11.0-16.0) 12/25/17 08:21 Hct 34.8 % (34.0-47.0) 12/25/17 08:21 MCV 88.1 fL (81.0-99.0) 12/25/17 08:21 MCH 30.1 pg (27.0-31.0) 12/25/17 08:21 MCHC 34.1 g/dL (33.0-37.0) 12/25/17 08:21 RDW 14.3 % (11.5-14.5) 12/25/17 08:21 Plt Count 184 K/uL (130-400) 12/25/17 08:21 MPV 10.1 fL (7.2-11.7) 12/25/17 08:21 Neut % (Auto) 59.4 % (50.0-75.0) 12/25/17 08:21 Lymph % (Auto) 31.8 % (20.0-40.0) 12/25/17 08:21 [place] % (Auto) 5.0 % (0.0-10.0) 12/25/17 08:21 Eos % (Auto) 3.2 % (0.0-4.0) 12/25/17 08:21 Baso % (Auto) 0.6 % (0.0-2.0) 12/25/17 08:21 Neut # (Auto) 2.8 K/uL (1.8-7.0) 12/25/17 08:21 Lymph # (Auto) 1.5 K/uL (1.0-4.3) 12/25/17 08:21 [place] # (Auto) 0.2 K/uL (0.0-0.8) 12/25/17 08:21 Eos # (Auto) 0.2 K/uL (0.0-0.7) 12/25/17 08:21 Baso # (Auto) 0.0 K/uL (0.0-0.2) 12/25/17 08:21 PT 10.1 SECONDS (9.7-12.2) 12/23/17 10:15 INR 0.9 12/23/17 10:15 APTT 33 SECONDS (21-34) 12/23/17 10:15 Sodium 145 mmol/L (132-148) 12/25/17 08:21 Potassium 3.6 mmol/L (3.6-5.2) 12/25/17 08:21 Chloride 106 mmol/L (98-107) 12/25/17 08:21 Carbon Dioxide 29 mmol/L (22-30) 12/25/17 08:21 Anion Gap 14 (10-20) 12/25/17 08:21 BUN 26 mg/dL (7-17) H 12/25/17 08:21 Creatinine 0.9 mg/dL (0.7-1.2) 12/25/17 08:21 Est GFR ( Amer) > 60 12/25/17 08:21 Est GFR (Non-Af Amer) > 60 12/25/17 08:21 POC Glucose (mg/dL) 244 mg/dL (65-110) H 12/25/17 11:40 Random Glucose 147 mg/dL (65-105) H 12/25/17 08:21 Hemoglobin A1c 6.8 % (4.2-6.5) H 12/23/17 10:15 Calcium 9.3 mg/dl (8.6-10.4) 12/25/17 08:21 Magnesium 1.8 mg/dL (1.6-2.3) 12/25/17 08:21 Total Bilirubin 0.6 mg/dL (0.2-1.3) 12/25/17 08:21 AST 27 U/L (14-36) 12/25/17 08:21 ALT 28 U/L (9-52) 12/25/17 08:21 Alkaline Phosphatase 89 U/L (38-126) 12/25/17 08:21 Troponin I < 0.0120 ng/mL (0.00-0.120) 12/23/17 10:15 Total Protein 6.9 g/dL (6.3-8.3) 12/25/17 08:21 Albumin 3.6 g/dL (3.5-5.0) 12/25/17 08:21 Globulin 3.3 gm/dL (2.2-3.9) 12/25/17 08:21 Albumin/Globulin Ratio 1.1 (1.0-2.1) 12/25/17 08:21 Triglycerides 86 mg/dL (0-149) 12/23/17 10:15 Cholesterol 158 mg/dL (0-199) 12/23/17 10:15 LDL Cholesterol Direct 102 mg/dL (0-129) 12/23/17 10:15 HDL Cholesterol 38 mg/dL (30-70) 12/23/17 10:15 Free T4 1.10 ng/dL (0.78-2.19) 12/25/17 08:21 TSH 3rd Generation 2.61 mIU/L (0.46-4.68) 12/24/17 08:02 Urine Color Yellow (YELLOW) 12/24/17 04:57 Urine Clarity Hazy (Clear) 12/24/17 04:57 Urine pH 5.0 (5.0-8.0) 12/24/17 04:57 Ur Specific Bennett 1.033 (1.003-1.030) H 12/24/17 04:57 Urine Protein 2+ mg/dL (NEGATIVE) H 12/24/17 04:57 Urine Glucose (UA) Normal mg/dL (Normal) 12/24/17 04:57 Urine Ketones Negative mg/dL (NEGATIVE) 12/24/17 04:57 Urine Blood Negative (NEGATIVE) 12/24/17 04:57 Urine Nitrate Negative (NEGATIVE) 12/24/17 04:57 Urine Bilirubin Negative (NEGATIVE) 12/24/17 04:57 Urine Urobilinogen Normal mg/dL (0.2-1.0) 12/24/17 04:57 Ur Leukocyte Esterase Neg César/uL (Negative) 12/24/17 04:57 Urine WBC (Auto) 3 /hpf (0-5) 12/24/17 04:57 Urine RBC (Auto) 3 /hpf (0-3) 12/24/17 04:57 Ur Squamous Epith Cells 4 /hpf (0-5) 12/24/17 04:57 Urine Bacteria Occ (<OCC) H 12/24/17 04:57 Blood Type A POSITIVE 12/23/17 10:15 Antibody Screen Negative 12/23/17 10:15 - Hospital Course Hospital Course: HPI ( As per admission): Patient is a 67 year old female with a past medical history of DM2, HTN, obesity and previous TIA. Patient is accompanied by her daughter who translates for the patient. Last night the patient as experiences fatigue and chills. This morning she had an episode when she became extremely diaphoretic, dizzy and blurry vision. The patient decided to call the her daughter. The daughter noticed that the patient was slurring her words and decided to call for an ambulance. A code stroke was called. Patient was evaluated by neurology in the ED and was found to have an NIH stroke scale of 0 (per neuro note). This is not the first time the patient has experienced this symptoms. The only reason she decided to call her daughter today was because this episode of diaphoresis, dizziness and blurry vision The patient denies any headaches, nausea, vomiting, chest pain, abdominal pain, palpitations, loss of consciousness, muscle weakness , facial droop, aphasia, numbness or tingling. Hospital Course: Patient was admitted with the diagnosis of TIA. Neurology consult was placed with Dr. Schmidt and Dr. Vivas's group, who recommended appropriate pertinent imaging and medications. As per neurology, there was no need for neurology intervention and patient should be managed on indicated medications. Patient remained medically stable with no acute issues. Upon clearance, patient was discharge with appropriate instructions and medications. Pertinent imaging and Labs: Head CT ( 12/23/17): Confluent low attenuation in the left parieto-occipital lobes suggestive for infarction. Correlation with MRI may be helpful if clinically indicated. Chronic microvascular ischemic changes. Left basal ganglia lacunar infarct. Head/Neck CTA (12/23/17): Bilateral cavernous internal carotid artery atherosclerosis without significant stenosis. CT of the brain otherwise unremarkable grossly. Moderate to severe right internal carotid artery origin stenosis. No significant stenosis left ICA. Bilateral carotid bulbar atherosclerotic plaque. Carotid doppler study (12/24/17): Duplex scan do not suggest hemodynamically significant stenosis of the right or left extracranial carotid arteries Head MRA (12/24/17): No evidence of occlusion, definite significant stenosis or saccular Neck MRA (12/24/17):There is a stenosis of the origin right internal carotid artery estimated between 50-60 percent. Correlate with concurrent carotid ultrasound. * Will f/u up if intervention is recommended Brain MRI (12/24/17): No acute intracranial abnormality. Specifically, no evidence of acute infarction. 2. 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 EKG: NSR, left axis deviations, ST elevations F/u echocardiogram: awaiting official report Labs: Lipid Panel: HDL 38, LDL 102, Trigly 86 * TSH: 2.61 * Troponin: Negative X1 Discharge Exam - Head Exam Head Exam: ATRAUMATIC, NORMAL INSPECTION - Eye Exam Eye Exam: EOMI, Normal appearance - Respiratory Exam Respiratory Exam: Clear to PA & Lateral, Prolonged Expiratory Phase, NORMAL BREATHING PATTERN. absent: Rales, Wheezes, Respiratory Distress, Stridor - Cardiovascular Exam Cardiovascular Exam: REGULAR RHYTHM, +S1, +S2 - GI/Abdominal Exam GI & Abdominal Exam: Normal Bowel Sounds, Soft. absent: Distended, Firm, Guarding, Tenderness - Neurological Exam Neurological exam: Alert, Oriented x3 - Psychiatric Exam Psychiatric exam: Normal Affect, Normal Mood - Skin Skin Exam: Normal Color Discharge Plan - Discharge Medications Prescriptions: Aspirin [Ecotrin] 81 mg PO DAILY 30 Days #30 tabec Atorvastatin [Lipitor] 20 mg PO HS 30 Days #30 tab Clopidogrel [Plavix] 75 mg PO DAILY 30 Days #30 tab - Follow Up Plan Condition: GUARDED Disposition: HOME/ ROUTINE Instructions: High Blood Pressure in Adults, Heart Healthy Diet, Transient Ischemic Attack (DC), Aspirin, Atorvastatin, Clopidogrel Additional Instructions: Please discharge patient home Please resume your home medications Please keep a log of your blood pressure reading at home and show it to your primary physician Please start the following new medications: 1. Aspirin 81mg PO daily 2. Lipitor 20mg PO HS 3. Plavix 75mg PO daily Please following up with your wholesale agronomist, Dr. Dominguez this Thursday, December 28, 2017 Please following up with your PMD, Dr. Jose Giordano within one week from today Please return to the hospital if symptoms resumes such as: headache, blurry vision, syncope, dizziness, lightheadedness, slurred speech Please take care Referrals: Matteo Dominguez MD [Staff Provider] - Manuel Vivas MD [Staff Provider] -
--- NOTE | 2017-12-25 23:50 | CARD ---
APPROVED REPORT EXAM: Two-dimensional and M-mode echocardiogram with Doppler and color Doppler. Other Information Quality : [employer] : INDICATION CODE STROKE RISK FACTORS Hypertension Obesity Diabetes 2D DIMENSIONS IVSd1.2 (0.7-1.1cm)LVDd4.7 (3.9-5.9cm) LVOT Diameter2.1 (1.8-2.4cm)PWd1.2 (0.7-1.1cm) LVDs2.8 (2.5-4.0cm)FS (%) 41.3 % LVEF (%)72.1 (>50%) M-Mode DIMENSIONS Left Atrium (MM)4.54 (2.5-4.0cm)Aortic Root3.44 (2.2-3.7cm) Aortic Cusp Exc.1.94 (1.5-2.0cm) Aortic Valve AoV Peak Rqrdzngd695.8cm/sAoV VTI50.6cmAO Peak GR.22mmHg LVOT Peak Wqtrexdl423.3cm/sLVOT VTI26.92cmAO Mean GR.13mmHg CONNOR (VMAX)1.32cr7FBC (VTI)1.83cm2 Mitral Valve MV E Fmbbxpzl513.3cm/sMV A Sbbtnqrn891.6cm/sE/A ratio0.8 TDI E/Lateral E'0.0E/Medial E'0.0 Tricuspid Valve TR Peak Dwibidip259fb/sTR Peak Gr.37irHvJECS50mkUf LEFT VENTRICLE The left ventricle is normal size. There is mild concentric left ventricular hypertrophy. Left ventricle systolic function is normal. The Ejection Fraction is >70%. There is normal LV segmental wall motion. Tissue Doppler imaging reveals abnormal left ventricular diastolic dysfunction. RIGHT VENTRICLE The right ventricle is normal size. There is normal right ventricular wall thickness. The right ventricular systolic function is normal. ATRIA The left atrium size is normal. The right atrium size is normal. The interatrial septum is intact with no evidence for an atrial septal defect. AORTIC VALVE The aortic valve is normal in structure. There is trace aortic regurgitation. There is mild valvular aortic stenosis. Calculated aortic valve area is 1.88 cm2 with maximum pressure gradient of 22 mmHg and mean pressure gradient of 13 mmHg. There is no aortic valvular vegetation. MITRAL VALVE The mitral valve is normal in structure. There is no evidence of mitral valve prolapse. There is no mitral valve stenosis. Mitral regurgitation is mild. TRICUSPID VALVE The tricuspid valve is normal in structure. There is mild tricuspid regurgitation. Right ventricular systolic pressure is estimated at 50-60 mmHg. There is moderate pulmonary hypertension. PULMONIC VALVE The pulmonic valve is not well visualized. There is no pulmonic valvular regurgitation. GREAT VESSELS The aortic root is normal in size. PERICARDIAL EFFUSION There is no significant pericardial effusion. <Conclusion> Left ventricle systolic function is normal. The Ejection Fraction is >70%. Hypertensive heart disease. Diastolic dysfunction. There is mild valvular aortic stenosis. There is trace aortic regurgitation. Mitral regurgitation is mild. There is mild tricuspid regurgitation. There is moderate pulmonary hypertension. There is no pulmonic valvular regurgitation.
== END 2017-12-25 14:52 | disposition home or self-care (01) | DRG 69 ==
LOC: C.ER 10:03 → C.9E 13:30 → C.6T 12-24 17:10
PROVIDERS: ADMIT Hospitalist; ATTEND Hospitalist
DX: G45.9 Transient cerebral ischemic attack, unspecified (principal); E66.01 Morbid (severe) obesity due to excess calories; Z68.41 Body mass index [BMI] 40.0-44.9, adult; I65.22 Occlusion and stenosis of left carotid artery; E03.9 Hypothyroidism, unspecified; E11.9 Type 2 diabetes mellitus without complications; I10 Essential (primary) hypertension; I77.1 Stricture of artery